=== PATIENT | female | born 1985 | race Caucasian/White ===

== ENCOUNTER 2020-04-08 23:18 | Emergency (ER) | payer OTHER, SELFPAY ==
[2020-04-08] MEDS ORDERED: XYLOCAINE 1% HCL 20 ML MDV IJ ONE (23:19)
--- NOTE | 2020-04-08 23:21 | ERPHSYRPT ---
- History of Present Illness Time Seen by Provider: 04/08/20 23:21 Source: patient Exam Limitations: no limitations Physician History: This is a 34-year-old white female who presents with an enlarging left buttock abscess. It has been enlarging over approximately 1 month. In the last 4 to 5 days she feels that this is getting larger and more tender. She has not had fevers. She is not allergic to any antibiotic therapy. Timing/Duration: week(s) (Enlarging over 4 weeks) Quality: painful Severity: mild Location: other (Left of midline buttock) Associated Symptoms: swelling/mass/lumps (Abscess left of midline buttock) Home Medications: No Reportable Medications [No Reported Medications] 04/08/20 [History] Travel Risk - International Travel Have you traveled outside of the country in past 3 weeks: No - Coronavirus Screening Are you exhibiting any of the following symptoms?: No Close contact with a COVID-19 positive Pt in past 14-21 Days: No - Review of Systems Constitutional: No Symptoms Eyes: No Symptoms Ears, Nose, & Throat: No Symptoms Respiratory: No Symptoms Cardiac: No Symptoms Abdominal/Gastrointestinal: No Symptoms Genitourinary Symptoms: No Symptoms Musculoskeletal: No Symptoms Skin: Other (Abscess left of midline buttock) Neurological: No Symptoms Psychological: No Symptoms Endocrine: No Symptoms Hematologic/Lymphatic: No Symptoms Immunological/Allergic: No Symptoms All Other Systems: Reviewed and Negative - Past Medical History Pertinent Past Medical History: No Neurological History: No Pertinent History ENT History: No Pertinent History Cardiac History: No Pertinent History Respiratory History: No Pertinent History Endocrine Medical History: No Pertinent History Musculoskeletal History: No Pertinent History GI Medical History: No Pertinent History History: No Pertinent History Psycho-Social History: No Pertinent History Female Reproductive Disorders: No Pertinent History - Past Surgical History Past Surgical History: No Neuro Surgical History: No Pertinent History Cardiac: No Pertinent History Respiratory: No Pertinent History Gastrointestinal: No Pertinent History Genitourinary: No Pertinent History Musculoskeletal: No Pertinent History Female Surgical History: No Pertinent History - Physical Exam General Appearance: no apparent distress, alert, anxiety Eye Exam: PERRL/EOMI, eyes nml inspection Ears, Nose, Throat Exam: normal ENT inspection, moist mucous membranes Neck Exam: normal inspection, non-tender, supple, full range of motion Respiratory Exam: airway intact, No chest tenderness, No respiratory distress Gastrointestinal/Abdomen Exam: No tenderness Pelvic Exam: not done Rectal Exam: not done Back Exam: normal inspection, normal range of motion, No CVA tenderness, No vertebral tenderness Extremity Exam: normal inspection, normal range of motion, pelvis stable Neurologic Exam: alert, oriented x 3, cooperative, pan devulcanizer II-XII nml as tested Skin Exam: other (Abscess measuring approximately 3-1/2 cm in its longest diameter and approximately 2 cm in its width. There is induration present and central fluctuance. There does not appear to be any connection to the anorectal region.) Lymphatic Exam: No adenopathy SpO2 Interpretation: normal O2 Delivery: Room Air Procedures - Incision and Drainage Timeout: Performed Site: Left of midline buttock Anesthesia: Pt decline Blade Size: 11 I & D Procedure: betadine prep Results: moderate amount pus Progress: I prepped the area with Betadine solution. The patient refuses topical or injectable lidocaine. I offered it to her. I did discuss the possibility of but not numbing well because of the presence of infection and abscess. After prepping the area with Betadine solution a #11 blade was used to make a 1 cm vertically oriented (axial) incision. Moderate amount of pus was exuded from the site. Patient states she does not want any larger incision made. We ob tained a culture of the pus that was present. I also compressed the area until there was no further pus present. The area is very tender and I felt that the patient would not tolerate packing. - Course Nursing assessment & vital signs reviewed: Yes - Progress Progress: improved Progress Note: 04/08/20 23:54 After the incision and drainage of the abscess site, the patient stated that her symptoms have improved. Counseled pt/family regarding: lab results ( document that if you), diagnosis, need for follow-up (She say it was not getting any better and) - Departure Departure Disposition: Home Clinical Impression: Left buttock abscess Condition: Stable Critical Care Time: No Referrals: ANTONIO CHRISTY [Primary Care Provider] - Additional Instructions: Sitz bath with warm soapy water or warm Epson salt solution twice a day. Compress the site during each sitz bath. Take your medication as prescribed. Follow-up with Dr. Christy in his office in the next 48 hours or the emergency department if unable to secure an appointment with Dr. Christy. Cover the wound after drying the incision site with a gauze or bandage. Do not use any ointments lotions or creams. Prescriptions: Hydrocodone/APAP 5-325 Tab^^^ [[place] 5-325 Tablet^^^] 1 tab PO Q8H PRN PRN #10 tablet MDD 3 PRN Reason: Pain Smz/Tmp Ds Tablet [Bactrim Ds Tablet] 1 udtab PO BID #14 tablet
[2020-04-08] MEDS ORDERED: Rocephin 1000 MG INJ IM ONE (23:43)
[2020-04-08] MEDS ORDERED: BACTRIM DS TABLET PO ONE ×2 (23:43→23:44)
[2020-04-08] MEDS ORDERED: NORCO 5/325 MG PO ONE (23:43)
[2020-04-08] MEDS ORDERED: Rocephin 1000 MG INJ ONE (23:44)
[2020-04-08] MEDS ORDERED: NORCO 5/325 MG ONE (23:52)
[2020-04-09 00:34] VITALS: BP 132/78; PULSE 89; O2SAT 99
== END 2020-04-09 00:33 | disposition home or self-care (01) ==
LOC: ED 23:18
DX: L02.31 Cutaneous abscess of buttock (principal)
CPT/HCPCS: 87070; 87077; 87186; 96372; 99284; J0696; A9270-GY